=== PATIENT | female | born 2000 | race Asian ===

== ENCOUNTER 2021-09-21 18:13 | Observation (INO) ==
[2021-09-21] MEDS ORDERED: SODIUM CHLORIDE 0.9% 1000ML 1,000 ML IV ONE (19:15)
[2021-09-21 19:16] LABS: Albumin Globulin Ratio 1.4 (0.9-2); Albumin Level 4.6 gm/dl (3.4-5.0); BUN Creatinine Ratio 12.9 (10-20); Bilirubin,Total 0.6 mg/dl (0.2-1.0); Calcium 9.6 mg/dl (8.5-10.1); Creatinine Clr Calc Pharmacy 118.9 ml/min; Est GFR (African American) 143.5 ml/min; Est GFR (Non-African American) 123.9 ml/min; Globulin 3.2 gm/dl (2.5-4.0); Potassium 3.5 mmol/L (3.5-5.1); Total Protein 7.8 gm/dl (6.0-8.3)
--- NOTE | 2021-09-21 19:19 | Emergency Department Note ---
History of Present Illness General Chief complaint: Abdominal Pain Stated complaint: KIDNEY INFECTION, FEVER FOR 2DAYS Time Seen by Provider: 09/21/21 19:08 Source: patient History of Present Illness Provider complaint: Right mid back pain Onset (ago): day(s) 2 Location: back and right Radiation: non-radiation Pain Consistency: + constant Maximum Pain Intensity: 7 Quality: + dull Relieved By: + none Associated symptoms: + fever/chills; no chest pain, no cough, no nausea/vomiting or no shortness of breath This is a 21-year-old female who presents with right mid back pain with urinary symptoms for the past 2 days. She describes the pain as a dull pain. She rates it a 7 out of 10 in severity. No modifying factors. She did go to an urgent care center and was placed on Bactrim. Her urinary symptoms have gone away but now over the past 2 days she has developed fever up to 104. She denies nausea or vomiting. She has had no cough or cold symptoms, chest pain, shortness of breath, abdominal pain, or diarrhea or black or bloody stools. She denies any abnormal vaginal discharge or bleeding. Home Medications Medication Instructions Recorded Confirmed Type Unknown Antibiotic 1 tab PO DIRECTED 09/21/21 09/21/21 History Allergies Allergy/AdvReac Type Severity Reaction Status Date / Time Sulfa (Sulfonamide Allergy Intermediate Rash Verified 09/21/21 20:50 Antibiotics) Past Med/Surg History Medical History No pertinent past medical history Social History Smoking Status: Never smoker Feels Safe at Home: Yes Review of Systems See HPI for pertinent positives & negatives. and A total of 10 systems reviewed and were otherwise negative Physical Exam Vital Signs Vital Signs - 24 hr 09/21/21 18:18 09/21/21 19:48 09/21/21 20:30 Temperature 37.5 C Temperature Source Temporal Artery Scan Pulse Rate 118 H Pulse Rate [Finger] 105 H 103 H Respiratory Rate 18 20 16 Respiratory Effort / Characteristics Non-Labored Non-Labored Spontaneous Respiratory Depth Normal Blood Pressure 121/78 Blood Pressure [Left Arm] 118/84 133/87 Blood Pressure Mean 92 Blood Pressure Mean [Left Arm] 95 102 Pulse Oximetry 98 99 100 Oxygen Delivery Method Room Air Room Air Room Air Sepsis Recent Fever Within 48 Hours No Sepsis New/Unexplained Change in Mental Status No Sepsis Action Taken by Nursing No Action Required 09/21/21 21:36 Temperature 39.4 C H Temperature Source Oral Pulse Rate Pulse Rate [Finger] Respiratory Rate Respiratory Effort / Characteristics Respiratory Depth Blood Pressure Blood Pressure [Left Arm] Blood Pressure Mean Blood Pressure Mean [Left Arm] Pulse Oximetry Oxygen Delivery Method Sepsis Recent Fever Within 48 Hours Sepsis New/Unexplained Change in Mental Status Sepsis Action Taken by Nursing Constitutional: Vital signs reviewed. Eyes: Pupils are equal round reactive to light. Conjunctiva are noninjected. ENT: Pharynx is clear without erythema or exudate. Mucous membranes are moist. Neck supple without meningeal signs. Respiratory: Clear to auscultation bilaterally. Breath sounds are equal bilaterally. Cardiovascular: Tachycardic. Regular rhythm. GI: Soft, nondistended with tenderness throughout the right side of her abdomen. No guarding. Bowel sounds are present. Musculoskeletal: No peripheral edema. No lower extremity tenderness. Mild right CVA tenderness. Integumentary: No cyanosis. or jaundice. Neurological: The patient is awake and alert. No focal deficits. Psychiatric: Normal affect. Not anxious appearing. Course Administered Medications Discontinued Medications Acetaminophen (Acetaminophen 500 Mg Tab) 1,000 mg PO NOW STA Stop: 09/21/21 21:45 Last Admin: 09/21/21 21:49 Dose: 1,000 mg Documented by: [id number] Sodium Chloride (Nss 1000ml) 1,000 mls @ 999 mls/hr IV .Q1H1M ONE Stop: 09/21/21 20:15 Last Infusion: 09/21/21 21:04 Dose: 0 mls/hr Documented by: [id number] Admin: 09/21/21 19:47 Dose: 999 mls/hr Documented by: [id number] Ceftriaxone Sodium (Rocephin) 2,000 mg in 70 mls @ 140 mls/hr IV NOW STA Stop: 09/21/21 20:44 Last Infusion: 09/21/21 21:03 Dose: 0 mls/hr Documented by: [id number] Admin: 09/21/21 20:25 Dose: 140 mls/hr Documented by: [id number] Medical Decision Making Differential Diagnosis Pyelonephritis, ureterolithiasis, obstructive neuropathy, cholelithiasis, pancreatitis Medical Records Attestation: I reviewed the patient's medical records. I did perform a limited focused review of portions of the patient's old chart on the electronic medical record. The patient has had no recent pertinent visits to this hospital. Home Medications Current Medication List: was personally reviewed by me Laboratory Data Attestation: I reviewed the patient's lab results. Result diagrams: 09/21/21 18:49 09/21/21 18:49 Lab Results 09/21/21 09/21/21 09/21/21 Range/Units 18:49 18:49 19:20 WBC 11.17 H (4.8-10.8) K/uL RBC 4.63 (4.2-5.4) M/uL Hgb 13.5 (12.0-16.0) g/dL Hct 40.5 (37-47) % MCV 87.5 (80-100) fL MCH 29.2 (25-34) pg MCHC 33.3 (32-36) g/dL RDW Std Deviation 40.2 (36.4-46.3) fL RDW Coeff of Charly 12.5 (11.5-14.5) % Plt Count 248 (130-400) K/uL MPV 11.1 H (7.4-10.4) fL Immature Gran % (Auto) 0.2 % Neut % (Auto) 80.6 % Lymph % (Auto) 8.1 % Lyon % (Auto) 10.9 % Eos % (Auto) 0.1 % Baso % (Auto) 0.1 % Neut # (Auto) 9.00 H (1.4-6.5) K/uL Lymph # (Auto) 0.91 L (1.2-3.4) K/uL Lyon # (Auto) 1.22 H (0.11-0.59) K/uL Eos # (Auto) 0.01 (0-0.5) K/uL Baso # (Auto) 0.01 (0-0.2) K/uL Immature Gran # (Auto) 0.02 (0.00-0.02) K/uL Sodium 137 (136-145) mmol/L Potassium 3.5 (3.5-5.1) mmol/L Chloride 102 (98-107) mmol/L Carbon Dioxide 25 (21-32) mmol/L Anion Gap 10 (3-11) BUN 9 (6-23) mg/dl Creatinine 0.70 (0.6-1.2) mg/dl Est Cr Clr Drug Dosing 118.9 ml/min Est GFR ( Amer) 143.5 ml/min Est GFR (Non-Af Amer) 123.9 ml/min BUN/Creatinine Ratio 12.9 (10-20) Glucose 89 (70-99(Fasting)) mg/dl Calcium 9.6 (8.5-10.1) mg/dl Total Bilirubin 0.6 (0.2-1.0) mg/dl AST 15 (13-39) U/L ALT 19 (7-52) U/L Alkaline Phosphatase 56 (34-104) U/L Total Protein 7.8 (6.0-8.3) gm/dl Albumin 4.6 (3.4-5.0) gm/dl Globulin 3.2 (2.5-4.0) gm/dl Albumin/Globulin Ratio 1.4 (0.9-2) Lipase 9 L (11-82) U/L Urine Color Yellow Urine Appearance Cloudy A (Clear) Urine pH 6.5 (4.5-7.5) Ur Specific Bandy 1.014 (1.000-1.030) Urine Protein 1+ H (Negative) Urine Glucose (UA) Negative (Negative) Urine Ketones 4+ H (Negative) Urine Blood 3+ H (Negative) Urine Nitrite Negative (Negative) Urine Bilirubin Negative (Negative) Urine Urobilinogen Negative (Negative) Ur Leukocyte Esterase 3+ H (Negative) Urine WBC (Auto) >30 H (0-5) /hpf Urine RBC (Auto) >30 H (0-4) /hpf U Hyaline Cast (Auto) 1-5 (0-5) /lpf U Epithel Cells (Auto) >30 H (0-5) /lpf Urine Bacteria (Auto) 2+ H (Negative) Urine Yeast Not Reportable Urine Test (Negative) 09/21/21 Range/Units 19:23 WBC (4.8-10.8) K/uL RBC (4.2-5.4) M/uL Hgb (12.0-16.0) g/dL Hct (37-47) % MCV (80-100) fL MCH (25-34) pg MCHC (32-36) g/dL RDW Std Deviation (36.4-46.3) fL RDW Coeff of Charly (11.5-14.5) % Plt Count (130-400) K/uL MPV (7.4-10.4) fL Immature Gran % (Auto) % Neut % (Auto) % Lymph % (Auto) % Lyon % (Auto) % Eos % (Auto) % Baso % (Auto) % Neut # (Auto) (1.4-6.5) K/uL Lymph # (Auto) (1.2-3.4) K/uL Lyon # (Auto) (0.11-0.59) K/uL Eos # (Auto) (0-0.5) K/uL Baso # (Auto) (0-0.2) K/uL Immature Gran # (Auto) (0.00-0.02) K/uL Sodium (136-145) mmol/L Potassium (3.5-5.1) mmol/L Chloride (98-107) mmol/L Carbon Dioxide (21-32) mmol/L Anion Gap (3-11) BUN (6-23) mg/dl Creatinine (0.6-1.2) mg/dl Est Cr Clr Drug Dosing ml/min Est GFR ( Amer) ml/min Est GFR (Non-Af Amer) ml/min BUN/Creatinine Ratio (10-20) Glucose (70-99(Fasting)) mg/dl Calcium (8.5-10.1) mg/dl Total Bilirubin (0.2-1.0) mg/dl AST (13-39) U/L ALT (7-52) U/L Alkaline Phosphatase (34-104) U/L Total Protein (6.0-8.3) gm/dl Albumin (3.4-5.0) gm/dl Globulin (2.5-4.0) gm/dl Albumin/Globulin Ratio (0.9-2) Lipase (11-82) U/L Urine Color Urine Appearance (Clear) Urine pH (4.5-7.5) Ur Specific Bandy (1.000-1.030) Urine Protein (Negative) Urine Glucose (UA) (Negative) Urine Ketones (Negative) Urine Blood (Negative) Urine Nitrite (Negative) Urine Bilirubin (Negative) Urine Urobilinogen (Negative) Ur Leukocyte Esterase (Negative) Urine WBC (Auto) (0-5) /hpf Urine RBC (Auto) (0-4) /hpf U Hyaline Cast (Auto) (0-5) /lpf U Epithel Cells (Auto) (0-5) /lpf Urine Bacteria (Auto) (Negative) Urine Yeast Urine Test Negative (Negative) Imaging Data Radiologist's Impression: [facility] Patient: JANEEN FUENTES CHI (Female) : 1 Status: ER Date: 09/21/21 21:40 Room #: History: Kidney infection, right flank pain. Slices: 42 Priors: Tech: Cortez Vickie @ [id number] Exams: US RENAL Contrast: Accession Numbers: [id number] Referring Physician: REFERRED SELF Preliminary Findings Only See Final Report For Complete Findings US RENAL: Mild right pelviectasis. No significant hydronephrosis, mass or visualized nephrolithiasis of either kidney. Incidentally noted debris within the bladder is concerning for cystitis. Radiologist: Trish Ang MD Study ready at 21:42 and initial results transmitted at 22:04 [facility] Narrative I did evaluate the patient as noted above. The patient was diagnosed with a UTI and kidney infection 2 days ago. She was placed on Bactrim and continues to have pain and fevers. IV access was established. I did order a urine analysis. She does have leukocyte esterase and greater than 30 WBCs with 2+ bacteria. No nitrites. There is 3+ blood. Urine test is negative. I did treat her with ceftriaxone IV. She was also given normal saline IV. I did order and review the patient's blood work as noted in the electronic medical record. Her white blood cell count is elevated 11.1 but otherwise her CBC is unremarkable. Electrolytes, LFTs and lipase are unremarkable. I did order an ultrasound of the kidneys I did review the images myself as well as the radiology report as described above. There is some mild pelviectasis on the right side but no evidence of hydronephrosis. I did reassess the patient. She did spike a fever of 39.4. She was given Tylenol. I later went to check the patient again about 40 minutes later. She was sleeping and her heart rate was 140. She did still have a fever but I did recommend hospitalization given outpatient treatment failure and her continuing to spike high fevers with tachycardia. I did order a screening COVID test. I did discuss case with the hospitalist and shoe caser. Impression & Plan Acute pyelonephritis, Tachycardia, Failure of outpatient treatment Discharge Plan Visit Data Chief Complaint: Abdominal Pain Stated Complaint: KIDNEY INFECTION, FEVER FOR 2DAYS ED Provider: Grayson Bal Discharge Problem: Acute pyelonephritis, Tachycardia, Failure of outpatient treatment Patient Disposition: Being Evaluated by Hospitalist Forms Stand Alone Forms: My [facility] Prescriptions Prescriptions: No Action Unknown Antibiotic 1 tab PO DIRECTED RF: 0 Referrals Referrals: PCP,NO [Primary Care Provider] -
[2021-09-21 19:25] LABS: Basophils # (auto) 0.01 K/uL (0-0.2); Basophils % (auto) 0.1 %; Eosinophils # (auto) 0.01 K/uL (0-0.5); Eosinophils % (auto) 0.1 %; Hematocrit (blood only) 40.5 % (37-47); Hemoglobin 13.5 g/dL (12.0-16.0); Immature Granulocytes # (auto) 0.02 K/uL (0.00-0.02); Immature Granulocytes % (auto) 0.2 %; Lymphocytes # (auto) 0.91 K/uL (1.2-3.4); Lymphocytes % (auto) 8.1 %; Mean Corpuscular Hemoglobin 29.2 pg (25-34); Mean Corpuscular Hgb Conc 33.3 g/dL (32-36); Mean Corpuscular Volume 87.5 fL (80-100); Mean Platelet Volume 11.1 fL (7.4-10.4); Monocytes # (auto) 1.22 K/uL (0.11-0.59); Monocytes % (auto) 10.9 %; Neutrophils % (auto) 80.6 %; Platelet Count 248 K/uL (130-400); RDW Coefficient of Variation 12.5 % (11.5-14.5); RDW Standard Deviation 40.2 fL (36.4-46.3); Red Blood Count 4.63 M/uL (4.2-5.4); White Blood Count 11.17 K/uL (4.8-10.8)
[2021-09-21 19:32] LABS: Pregnancy Test, Urine Negative (Negative)
[2021-09-21 19:32] LABS: Appearance Urine Cloudy (Clear); Bacteria Urine Automated 2+ (Negative); Bilirubin Urine Negative (Negative); Blood Urine 3+ (Negative); Color Urine Yellow; Epithelial Cell Urine Auto >30 /lpf (0-5); Glucose Urine UA Negative (Negative); Ketones Urine 4+ (Negative); Leukocyte Esterase Urine 3+ (Negative); Nitrite Urine Negative (Negative); Protein Urine 1+ (Negative); RBC Urine Automated >30 /hpf (0-4); Specific Gravity Urine 1.014 (1.000-1.030); Urobilinogen Urine Negative (Negative); WBC Urine Automated >30 /hpf (0-5); pH Urine 6.5 (4.5-7.5)
[2021-09-21] MEDS ORDERED: cefTRIAXone SODIUM 2,000 MG/70 ML BAG IV STA (20:15)
[2021-09-21] MEDS ORDERED: ACETAMINOPHEN 500 MG TAB PO STA (21:44)
[2021-09-21] MEDS: LACTATED RINGER'S 1,000 ML IV SCH (23:15)
--- NOTE | 2021-09-21 23:42 | History & Physical Report ---
Date of Service September 21, 2021 Assessment & Plan (1) Acute pyelonephritis: Plan: 21yo female with no significant past medical or surgical history presenting with presumed pyelonephritis - persistent fever despite treatment with 4 doses of PO Bactrim. Patient septic (2/4 SIRS with urinary source) - febrile, tachycardic with elevated WBC (11.12). CVA and suprapubic tenderness. UA appears infected. -Follow blood and urine cultures sent in ER. Blood cultures sent due to reported history of rigors and high fever, of note, sent after Ceftriaxone administered -Ceftriaxone 1gm IV daily -Tylenol PRN pain or fever -Zofran as needed for nausea Patient is visiting from [place] and staying with a friend at [facility] (2) Tachycardia: Plan: Markedly elevated HR, sinus tachycardia. Suspect secondary to infection, fever and dehydration -Tylenol as needed for pain or fever -LR at 125mL/hr x 1 liter -Telemetry monitoring Plan: F/E/N - LR at 125mL/hr x 1, electrolytes WNL, Regular diet as tolerated Ppx - Low risk for DVT, no ppx indicated Code - Full Dispo - Admit to medical with telemetry History of Present Illness Chief Complaint: Right flank pain, fever, tachycardia Primary Care Provider: NO PCP Edward Ibrahim is a pleasant 21yo female with no significant past medical or surgical history presenting with right flank pain, fever and tachycardia ongoing x 3 days. Patient had symptoms consistent with UTI appx 1 week ago - dysuria, increased frequency and urgency. She developed right flank pain 3 days ago. She was seen at Urgent Care 2 days ago and was prescribed Bactrim for UTI, possible pyelonephritis. (Of note, patient has a documented Sulfa antibiotic allergy, however, her father has the allergy and she has never personally had an adverse reaction to a sulfa drug) Patient has taken 4 doses of Bactrim. Has had worsening fever as high as 104 over the last two day as well as flank pain and rigors. She is also complaining of headache and malaise. Also complaining of racing heart mostly with becoming febrile. No additional complaints at this time. ER Course: Tylenol. Ceftriaxone, NSS Allergies Allergy/AdvReac Type Severity Reaction Status Date / Time Sulfa (Sulfonamide Allergy Intermediate Rash Verified 09/21/21 20:50 Antibiotics) Home Medications Medication Instructions Recorded Confirmed Type Unknown Antibiotic 1 tab PO DIRECTED 09/21/21 09/21/21 History Past Med/Surg History Medical History No pertinent past medical history Surgical History No pertinent past surgical history Family History (Updated 09/21/21 @ 23:49 by Michela Nazario DO) Other Family history non-contributory Social History Smoking Status: Never smoker Feels Safe at Home: Yes Review of Systems Review of Systems: All systems reviewed & are unremarkable except as noted in HPI & below Physical Exam Physical Exam: General: patient resting comfortably, NAD, non-toxic in appearance, AA&O x 4 Skin: warm, dry, intact, no rashes or lesions HEENT: NC/AT, PERRL, EOMI, anicteric sclera, conjunctiva without injection, external ear normal to inspection and nontender, nares patent, moist mucus membranes, dentition intact, no oropharyngeal lesions, neck supple, trachea midline, no LAD, no thyromegaly, no JVD Heart: +S1/S2, regular, no m/r/g Lungs: equal air entry bilaterally, no rales/rhonchi/wheezes Abd: +BS, soft, NT/ND, no masses/organomegaly/ascites, +Right CVA tenderness, +Suprapubic tenderness Ext: warm, 2+ pulses in UE/LE bilaterally, no clubbing/cyanosis or edema Neuro: nonfocal, patient AA&O x 4, speech intact, no facial droop, moving all extremities on command with equal strength 5/5 Results & Data Results & Data ([facility]) Vital Signs (Past 12 Hours) Vital Signs Temp Pulse Pulse Resp BP BP Pulse Ox 09/21/21 23:18 37.7 C H 119 H 110/53 L 97 09/21/21 22:49 132 H 22 97 09/21/21 21:36 39.4 C H 09/21/21 20:30 103 H 16 133/87 100 09/21/21 19:48 105 H 20 118/84 99 09/21/21 18:18 37.5 C 118 H 18 121/78 98 Laboratory Results Lab Results 09/21/21 09/21/21 09/21/21 Range/Units 18:49 18:49 19:20 WBC 11.17 H (4.8-10.8) K/uL RBC 4.63 (4.2-5.4) M/uL Hgb 13.5 (12.0-16.0) g/dL Hct 40.5 (37-47) % MCV 87.5 (80-100) fL MCH 29.2 (25-34) pg MCHC 33.3 (32-36) g/dL RDW Std Deviation 40.2 (36.4-46.3) fL RDW Coeff of Charly 12.5 (11.5-14.5) % Plt Count 248 (130-400) K/uL MPV 11.1 H (7.4-10.4) fL Immature Gran % (Auto) 0.2 % Neut % (Auto) 80.6 % Lymph % (Auto) 8.1 % Riley % (Auto) 10.9 % Eos % (Auto) 0.1 % Baso % (Auto) 0.1 % Neut # (Auto) 9.00 H (1.4-6.5) K/uL Lymph # (Auto) 0.91 L (1.2-3.4) K/uL Riley # (Auto) 1.22 H (0.11-0.59) K/uL Eos # (Auto) 0.01 (0-0.5) K/uL Baso # (Auto) 0.01 (0-0.2) K/uL Immature Gran # (Auto) 0.02 (0.00-0.02) K/uL Sodium 137 (136-145) mmol/L Potassium 3.5 (3.5-5.1) mmol/L Chloride 102 (98-107) mmol/L Carbon Dioxide 25 (21-32) mmol/L Anion Gap 10 (3-11) BUN 9 (6-23) mg/dl Creatinine 0.70 (0.6-1.2) mg/dl Est Cr Clr Drug Dosing 118.9 ml/min Est GFR ( Amer) 143.5 ml/min Est GFR (Non-Af Amer) 123.9 ml/min BUN/Creatinine Ratio 12.9 (10-20) Glucose 89 (70-99(Fasting)) mg/dl Calcium 9.6 (8.5-10.1) mg/dl Total Bilirubin 0.6 (0.2-1.0) mg/dl AST 15 (13-39) U/L ALT 19 (7-52) U/L Alkaline Phosphatase 56 (34-104) U/L Total Protein 7.8 (6.0-8.3) gm/dl Albumin 4.6 (3.4-5.0) gm/dl Globulin 3.2 (2.5-4.0) gm/dl Albumin/Globulin Ratio 1.4 (0.9-2) Lipase 9 L (11-82) U/L Urine Color Yellow Urine Appearance Cloudy A (Clear) Urine pH 6.5 (4.5-7.5) Ur Specific Bolton 1.014 (1.000-1.030) Urine Protein 1+ H (Negative) Urine Glucose (UA) Negative (Negative) Urine Ketones 4+ H (Negative) Urine Blood 3+ H (Negative) Urine Nitrite Negative (Negative) Urine Bilirubin Negative (Negative) Urine Urobilinogen Negative (Negative) Ur Leukocyte Esterase 3+ H (Negative) Urine WBC (Auto) >30 H (0-5) /hpf Urine RBC (Auto) >30 H (0-4) /hpf U Hyaline Cast (Auto) 1-5 (0-5) /lpf U Epithel Cells (Auto) >30 H (0-5) /lpf Urine Bacteria (Auto) 2+ H (Negative) Urine Yeast Not Reportable Urine Test (Negative) SARS-CoV-2, RNA, NAAT (NEGATIVE) 09/21/21 09/21/21 Range/Units 19:23 22:28 WBC (4.8-10.8) K/uL RBC (4.2-5.4) M/uL Hgb (12.0-16.0) g/dL Hct (37-47) % MCV (80-100) fL MCH (25-34) pg MCHC (32-36) g/dL RDW Std Deviation (36.4-46.3) fL RDW Coeff of Charly (11.5-14.5) % Plt Count (130-400) K/uL MPV (7.4-10.4) fL Immature Gran % (Auto) % Neut % (Auto) % Lymph % (Auto) % Riley % (Auto) % Eos % (Auto) % Baso % (Auto) % Neut # (Auto) (1.4-6.5) K/uL Lymph # (Auto) (1.2-3.4) K/uL Riley # (Auto) (0.11-0.59) K/uL Eos # (Auto) (0-0.5) K/uL Baso # (Auto) (0-0.2) K/uL Immature Gran # (Auto) (0.00-0.02) K/uL Sodium (136-145) mmol/L Potassium (3.5-5.1) mmol/L Chloride (98-107) mmol/L Carbon Dioxide (21-32) mmol/L Anion Gap (3-11) BUN (6-23) mg/dl Creatinine (0.6-1.2) mg/dl Est Cr Clr Drug Dosing ml/min Est GFR ( Amer) ml/min Est GFR (Non-Af Amer) ml/min BUN/Creatinine Ratio (10-20) Glucose (70-99(Fasting)) mg/dl Calcium (8.5-10.1) mg/dl Total Bilirubin (0.2-1.0) mg/dl AST (13-39) U/L ALT (7-52) U/L Alkaline Phosphatase (34-104) U/L Total Protein (6.0-8.3) gm/dl Albumin (3.4-5.0) gm/dl Globulin (2.5-4.0) gm/dl Albumin/Globulin Ratio (0.9-2) Lipase (11-82) U/L Urine Color Urine Appearance (Clear) Urine pH (4.5-7.5) Ur Specific Bolton (1.000-1.030) Urine Protein (Negative) Urine Glucose (UA) (Negative) Urine Ketones (Negative) Urine Blood (Negative) Urine Nitrite (Negative) Urine Bilirubin (Negative) Urine Urobilinogen (Negative) Ur Leukocyte Esterase (Negative) Urine WBC (Auto) (0-5) /hpf Urine RBC (Auto) (0-4) /hpf U Hyaline Cast (Auto) (0-5) /lpf U Epithel Cells (Auto) (0-5) /lpf Urine Bacteria (Auto) (Negative) Urine Yeast Urine Test Negative (Negative) SARS-CoV-2, RNA, NAAT NEGATIVE (NEGATIVE) Diagnostic Findings Renal US - per [facility] - Mild right pelviectasis. No significant hydronephrosis, mass or visualized nephrolilthiasis of either kidney. Incidenta lly noted debris within the bladder is concerning for cystitis. Code Status & VTE Plan VTE Prophylaxis Plan VTE Prophylaxis will be ordered: No PG Care Time/CCT Total # of Minutes Spent Total Time Spent with Patient: Total time spent is greater than 50% in coordination of care (as documented) at patient's floor/unit and/or counseling patient: Coding Level of Care Code 65943 Initial Inpt Care Lvl 2 Diagnoses Acute pyelonephritis N10 Tachycardia R00.0
[2021-09-22] MEDS ORDERED: ONDANSETRON INJ 2 MG/ML 2 ML VIAL IV PRN (00:13)
[2021-09-22] MEDS ORDERED: LACTATED RINGER'S 1,000 ML IV SCH (00:13)
[2021-09-22] MEDS: LACTATED RINGER'S 1,000 ML IV SCH ×2 (06:54→14:55)
[2021-09-22] MEDS: ACETAMINOPHEN 325 MG TAB PO PRN ×3 (07:31→20:00)
[2021-09-22 07:34] LABS: Basophils # (auto) 0.01 K/uL (0-0.2); Basophils % (auto) 0.1 %; Hematocrit (blood only) 34.5 % (37-47); Hemoglobin 11.8 g/dL (12.0-16.0); Immature Granulocytes # (auto) 0.01 K/uL (0.00-0.02); Immature Granulocytes % (auto) 0.1 %; Lymphocytes # (auto) 0.54 K/uL (1.2-3.4); Lymphocytes % (auto) 5.4 %; Mean Corpuscular Hemoglobin 29.4 pg (25-34); Mean Corpuscular Hgb Conc 34.2 g/dL (32-36); Mean Platelet Volume 11.3 fL (7.4-10.4); Monocytes # (auto) 1.37 K/uL (0.11-0.59); Monocytes % (auto) 13.6 %; Neutrophils # (auto) 8.16 K/uL (1.4-6.5); Neutrophils % (auto) 80.8 %; Platelet Count 220 K/uL (130-400); RDW Coefficient of Variation 12.4 % (11.5-14.5); RDW Standard Deviation 39.8 fL (36.4-46.3); Red Blood Count 4.01 M/uL (4.2-5.4); White Blood Count 10.09 K/uL (4.8-10.8)
[2021-09-22 07:52] LABS: Anion Gap 8 (3-11); BUN Creatinine Ratio 10.9 (10-20); Blood Urea Nitrogen 6 mg/dl (6-23); Calcium 8.7 mg/dl (8.5-10.1); Carbon Dioxide 25 mmol/L (21-32); Chloride 101 mmol/L (98-107); Creatinine Clr Calc Pharmacy 151.2 ml/min; Est GFR (African American) > 150.0 ml/min; Est GFR (Non-African American) 134.1 ml/min; Glucose 100 mg/dl (70-99(Fasting)); Potassium 3.6 mmol/L (3.5-5.1); Sodium 134 mmol/L (136-145)
--- NOTE | 2021-09-22 08:03 | Ultrasound Report ---
ULTRASOUND KIDNEYS AND BLADDER CLINICAL HISTORY: Right flank pain. COMPARISON STUDY: No priors. TECHNIQUE: Real-time, grayscale, and color flow sonography of the kidneys and bladder is performed. I mages are reviewed in the transverse and longitudinal planes. FINDINGS: Kidneys: The kidneys are normal in size and echotexture. The right kidney measures 12.4 cm in length and the left kidney measures 10.7 cm in length. There is no hydronephrosis. No shadowing renal calcul i are identified. There is no sonographic evidence of contour deforming renal mass lesion. No perinep hric fluid is identified. Bladder: The bladder is normal in appearance. Intraluminal debris is noted. Bilateral ureteral jets w ere seen. IMPRESSION: 1. Unremarkable sonographic appearance of the kidneys. There is no hydronephrosis. 2. Intraluminal debris is noted in the bladder. Correlate with urinalysis. ACT 112: Negative or not required by law. Electronically signed by: Jose Rivera M.D. 09/22/2021 8:01 AM
--- NOTE | 2021-09-22 12:06 | Hospitalist Progress Note ---
Date of Service September 22, 2021 Assessment & Plan (1) Acute pyelonephritis: Plan: 21yo female with no significant past medical or surgical history presenting with presumed pyelonephritis - persistent fever despite treatment with 4 doses of PO Bactrim. Patient septic (2/4 SIRS with urinary source) -On admission febrile, tachycardic with elevated WBC (11.12). CVA and suprapubic tenderness. UA appears infected. BC pending given history of rigors with high fever UC pending On empiric Rocephin 1 g IV daily, clinically improving today with additional resolution of leukocytosis Febrile to 38.9 this morning, given ongoing fever and pending sensitivities w ith failure of Bactrim as outpatient would continue inpatient status and await sensitivities at this time unless clinically improved and afebrile x24 hours -Tylenol PRN pain or fever -Zofran as needed for nausea Patient is visiting from [place] and staying with a friend at [facility] [address] (2) Tachycardia: Plan: Sinus tachycardia, secondary to sepsis/acute Henrik as above Blood pressure normal with supplemental fluids this morning Continue Tylenol Mild sinus tachycardia, continue to encourage p.o. and antipyretics with anti biotic treatment as above Plan: F/E/N - electrolytes WNL, Regular diet as tolerated Ppx - Low risk for DVT, no ppx indicated Code - Full Dispo - Admit to medical with telemetry Admission and Anticipated Discharge Date Admission Date: September 21, 2021 Subjective Some fever/chills overnight, feels tired this morning. Denies pain. Think she feels a little better than yesterday, denies nausea/vomiting /diarrhea/constipation/dysuria. No urinary frequency this morning. Appetite decreased, but present. No flank pain today, patient reports she is not sure if this is from the antibiotics or Tylenol but back pain seems improved and not present at morning assessment. Review of Systems Review of Systems: All systems reviewed & are unremarkable except as noted in Subjective Physical Exam Physical Exam: General: Fatigued appearing, but nontoxic A&Ox3. NAD. Cooperative. HEENT: Atraumatic, normocephalic. Pulm: CTAB A&P. -wheezes, -rales, -rhonchi. Symmetrical chest rise. No increase in work of breathing. No respiratory distress. Cardiac: RRR, -mrg. Radial pulses intact and symmetrical. Abdominal: Nontender, nondistended, soft. BS present. Results & Data Results & Data ([facility]) Vital Signs (Past 12 Hours) Vital Signs Temp Pulse Pulse Resp BP Pulse Ox 09/22/21 11:01 37.2 C 104 H 18 104/69 100 09/22/21 07:48 128 H 09/22/21 07:24 38.9 C H 119 H 18 97/55 L 98 09/22/21 03:02 37.3 C 103 H 20 94/59 L 98 09/22/21 00:15 112 H 09/22/21 00:05 37.1 C 123 H 20 102/60 96 PG Care Time/CCT Total # of Minutes Spent Total Time Spent with Patient: Total time spent is greater than 50% in coordination of care (as documented) at patient's floor/unit and/or counseling patient: Coding Level of Care Code 08553 Subseq Hosp Care Lvl 2 Diagnoses Acute pyelonephritis N10 Tachycardia R00.0
[2021-09-22] MEDS ORDERED: cefTRIAXone SODIUM 1,000 MG in DEXTROSE 5% 50 ML IV SCH (20:00)
[2021-09-23] MEDS: ACETAMINOPHEN 325 MG TAB PO PRN (03:44)
[2021-09-23 06:31] LABS: Basophils # (auto) 0.01 K/uL (0-0.2); Basophils % (auto) 0.1 %; Eosinophils # (auto) 0.02 K/uL (0-0.5); Eosinophils % (auto) 0.3 %; Hematocrit (blood only) 36.8 % (37-47); Hemoglobin 12.1 g/dL (12.0-16.0); Immature Granulocytes # (auto) 0.01 K/uL (0.00-0.02); Immature Granulocytes % (auto) 0.1 %; Lymphocytes # (auto) 0.84 K/uL (1.2-3.4); Lymphocytes % (auto) 11.2 %; Mean Corpuscular Hemoglobin 28.7 pg (25-34); Mean Corpuscular Hgb Conc 32.9 g/dL (32-36); Mean Corpuscular Volume 87.2 fL (80-100); Mean Platelet Volume 10.9 fL (7.4-10.4); Monocytes # (auto) 1.37 K/uL (0.11-0.59); Monocytes % (auto) 18.2 %; Neutrophils # (auto) 5.28 K/uL (1.4-6.5); Neutrophils % (auto) 70.1 %; Platelet Count 240 K/uL (130-400); RDW Coefficient of Variation 12.5 % (11.5-14.5); RDW Standard Deviation 40.2 fL (36.4-46.3); Red Blood Count 4.22 M/uL (4.2-5.4); White Blood Count 7.53 K/uL (4.8-10.8)
[2021-09-23 06:57] LABS: Anion Gap 9 (3-11); BUN Creatinine Ratio 10.3 (10-20); Blood Urea Nitrogen 6 mg/dl (6-23); Carbon Dioxide 26 mmol/L (21-32); Chloride 101 mmol/L (98-107); Creatinine Clr Calc Pharmacy 144.3 ml/min; Est GFR (African American) > 150.0 ml/min; Est GFR (Non-African American) 131.8 ml/min; Glucose 96 mg/dl (70-99(Fasting)); Potassium 3.4 mmol/L (3.5-5.1); Sodium 136 mmol/L (136-145)
--- NOTE | 2021-09-23 12:15 | Discharge Summary ---
Date of Service September 23, 2021 Admission HPI Per Admitting Provider Edward Ibrahim is a pleasant 21yo female with no significant past medical or surgical history presenting with right flank pain, fever and tachycardia ongoing x 3 days. Patient had symptoms consistent with UTI appx 1 week ago - dysuria, increased frequency and urgency. She developed right flank pain 3 days ago. She was seen at [facility]gent [facility] 2 days ago and was prescribed Bactrim for UTI, possible pyelonephritis. (Of note, patient has a documented Sulfa antibiotic allergy, however, her father has the allergy and she has never personally had an adverse reaction to a sulfa drug) Patient has taken 4 doses of Bactrim. Has had worsening fever as high as 104 over the last two day as well as flank pain and rigors. She is also complaining of headache and malaise. Also complaining of racing heart mostly with becoming febrile. No additional complaints at this time. ER Course: Tylenol. Ceftriaxone, NSS Principal Diagnosis Complicated UTI, pyelonephritis Discharge Exam General: A&Ox3. NAD. Cooperative. HEENT: Atraumatic, normocephalic. Pulm: CTAB A&P. -wheezes, -rales, -rhonchi. Symmetrical chest rise. No increase in work of breathing. No respiratory distress. Cardiac: RRR, -mrg. Radial pulses intact and symmetrical. Abdominal: Nontender, nondistended, soft. BS present. Discharge Data Allergies Allergy/AdvReac Type Severity Reaction Status Date / Time Sulfa (Sulfonamide Allergy Intermediate Rash Verified 09/21/21 20:50 Antibiotics) Consultations 09/21/21 22:23 ED Decision to Admit Stat Ordered Studies 09/21/21 19:15 US renal/blad retro comp Urgent Hospital Course (1) Acute pyelonephritis: 21yo female with no significant past medical or surgical history presenting with presumed pyelonephritis Complicated UTI, presumed pyelonephritis UC positive for E. coli resistant to Bactrim, Augmentin, Unasyn, amoxicillin. Some bladder debris on ultrasound, no impaired kidney function or hydronephrosis Improved clinically on Rocephin Converted to ciprofloxacin 500 mg twice daily for 5 additional days to complete 1 week of treatment for complicated UTI Patient felt "like a new person", afebrile, and well morning of discharge. She had had a fever in the preceding 24 hours, did not wish to stay for further observation. Discussed strict return precautions including representing to the ER for any worsening symptoms, fevers, chills, sweats, flank pain, or change in urinary output. Patient is a student at [place], is calling to have a appointment scheduled for follow-up when she returns on this coming Sunday. In the meantime if she has any worsening symptoms she will call 911 or have a friend bring her back to the emergency department for reevaluation. No leukocytosis on discharge (2) Tachycardia: Improved with antibiotics and IV fluids, converted to p.o. fluids day prior to discharge F/E/N - electrolytes WNL, Regular diet as tolerated Ppx - Low risk for DVT, no ppx indicated Code - Full Dispo - Admit to medical with telemetry Total Time Total Time Spent Total Time Spent (In Minutes): Time spend day of discharge 30 minutes including direct patient care, documentation, review of labs and images, and coordination of care. Discharge Plan Discharge Items Patient Disposition: Home - Self-Care Reason For Visit: FEVER, TACHYCARDIA, FLANK PAIN Discharge Diagnosis: Complicated UTI Activity: Resume your previous activity Non-emergency contact: Primary Care Provider Call non-emergency contact if: you have any medication questions, your symptoms worsen, your pain is not controlled, your pain is worsening, your pain is unusual for you and you have a fever Follow-up/Referrals: PCP,CHRISTINE [Primary Care Provider] - Diet: Regular Addtl Attending Provider Instructions: You were seen in the hospital for a complicated urinary tract infection. You are treated with antibiotics and clinically improved. You are pain-free and afebrile at time of discharge. You had had a fever in the previous 24 hours, but felt greatly improved" like a new person". You are being discharged with close follow-up to outpatient care with return precautions. Your urine sample revealed infection with E. coli which was resistant to Bactrim, Unasyn, and ampicillin but which was otherwise sensitive to antibiotics. You have been prescribed an antibiotic as below. You have been prescribed an antibiotic, ciprofloxacin. Please take ciprofloxacin 500 mg by mouth every 12 hours for 5 additional days. If you develop any signs of allergy including rash, difficulty breathing, tongue swelling, lip swelling, or other concerning symptoms please stop taking this medication and call 911 to present to the emergency department immediately for reevaluation. You are visiting [employer], and will be returning home this coming Sunday. Please have a follow-up visit with [facility] when you return home this coming week, please call ahead of time to schedule this appointment. If you develop any new or worsening symptoms including fever, chills, sweats, chest pain, chest pressure, difficulty breathing, uncontrolled nausea/vomiting, rash, wheezing, passing out or nearly passing out, bleeding, black/bloody bowel movements, or other new or concerning symptoms please call 911 for re-evaluation in the emergency department if you are very concerned. Pending Studies at Discharge: No Stand-Alone Forms: My [facility] Asker, Smoking Cessation Medications and DC Order Prescriptions: New ciprofloxacin HCl 500 mg tablet 500 mg PO BID 5 Days Qty: 10 RF: 0 Discontinued Unknown Antibiotic 1 tab PO DIRECTED RF: 0 Discharge Orders: Discharge Order (Routine); Ordered 09/23/21 Ordered By: Pee Núñez Admission Data Admit Date/Time: 09/21/21 22:54 Attending Provider: Pee Núñez Admit Provider: Michela Nazario Primary Care Provider: PCP,NO Other Providers: Michela Nazario Coding Level of Care Code D/C DAY MANAGEMENT >30 MINS Diagnoses Acute pyelonephritis N10 Tachycardia R00.0
== END 2021-09-23 13:00 | disposition home or self-care (01) ==
LOC: ED 18:13 → 2N 22:54 → SUATTDRO 22:54 → INTOOBSV 22:54 → 2N 23:34